=== PATIENT | female | born 1970 | race Caucasian/White ===

== ENCOUNTER 2020-01-13 21:06 | Emergency (ER) | payer SELFPAY ==
[~2020-01-13] VITALS: Ht 162.6 cm; Wt 77.1 kg
[2020-01-13 21:18] VITALS: Ht 162.6 cm; Wt 77.1 kg
[2020-01-13 22:51] VITALS: BP 130/89
== END 2020-01-13 22:52 | disposition home or self-care (01) ==
LOC: ED 21:06
DX: G44.209 Tension-type headache, unspecified, not intractable (principal)
CPT/HCPCS: J1885